=== PATIENT | male | born 1965 | race Caucasian/White ===

== ENCOUNTER 2023-12-02 00:50 | Day surgery (SDC) | payer OTHER, SELFPAY ==
[2023-11-14 10:54] VITALS: BMI 27.0
[2023-12-02 11:24] VITALS: BP 125/88; PULSE 72; RESP 19; TEMP 36.3; O2SAT 100
[2023-12-02] MEDS: LACTATED RINGERS 1,000 ML 150 ML IV CONT (11:37)
--- NOTE | 2023-12-02 11:42 | WPDANESEPPF ---
Anes - Initial Pre Proc Eval Procedure: Operation Date: 12/02/23 12:30 Proposed Procedures p Colonoscopy - Jamar Alcala MD Date/Time: 12/02/23 11:42 Surgeon: Jamar Alcala MD Pre Op Diagnosis: Family HX malignant neoplasm of digestive organs Patient Data Age: 58 Gender: M Height: 1.85 m Weight: 91.7 kg Last Vital Signs Temp 97.3 F L 12/02/23 11:24 Pulse 72 12/02/23 11:24 Resp 19 12/02/23 11:24 BP 125/88 12/02/23 11:24 Pulse Ox 100 12/02/23 11:24 O2 Del Method Room Air 12/02/23 11:24 Allergies Allergy/AdvReac Type Severity Reaction Status Date / Time No Known Allergies Allergy Unverified 12/02/23 11:23 Home Medications Medication Instructions Recorded Confirmed Type famotidine 20 mg tablet 20 mg PO BID PRN reflux 08/03/19 11/14/23 History nifedipine 30 mg tablet,extended 30 mg PO DAILY PRN cold exposure 06/04/22 11/14/23 Rx release #90 tabs triamcinolone acetonide 0.5 % 1 applic topical BID PRN rash 06/04/22 09/17/23 Rx topical cream #30 grams tretinoin 0.05 % topical cream 1 applic topical . daily #45 grams 10/10/22 09/17/23 Rx cetirizine 10 mg tablet (Zyrtec) 20 mg PO BID PRN allergy symptoms 03/06/23 11/14/23 History tamsulosin 0.4 mg capsule (Flomax) 0.4 mg PO QHS #90 caps 07/03/23 11/14/23 Rx montelukast 10 mg tablet 10 mg PO QHS #90 tabs 07/07/23 11/14/23 Rx (Singulair) fluticasone propionate 50 1 spray intranasal BID #48 grams 09/17/23 11/14/23 Rx mcg/actuation nasal spray,suspension (Flonase Allergy Relief) tamsulosin 0.4 mg capsule 0.4 mg PO DAILY 11/14/23 11/14/23 History Patient hx anesthesia problems: none Family hx anesthesia problems: none Results Review: All pre-operative results and documents have been reviewed as part of the pre-operative evaluation. [facility] Past Medical History Medical History (Updated 09/17/23 @ 14:57 by Lyle Parker MD) Atopic eczema BMI 27.0-27.9,adult BMI 29.0-29.9,adult BPH without obstruction/lower urinary tract symptoms Chronic anxiety Chronic cough Chest x-ray was normal on 07/24/2022. COVID-19 (~2022) COVID antibody test on 09/06/2022 was greater than 800. Probable recent COVID infection. 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 Iron 126 with 56% saturation and ferritin 298 with hemoglobin 13.5 on 08/18/2023. Excessive cerumen in left ear canal Family history of colon cancer Fatigue Hepatitis C was negative, HIV negative, hepatitis B immune. COVID antibody test was markedly positive at greater than 800 with likely recent infection 09/06/2022. History of Lyme disease Hypogonadism male total testosterone normal at 429.8 with free testosterone low at 4.1 on 08/18/2023. 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 Overweight (BMI 25.0-29.9) Protein in urine (08/18/23) trace proteinuria 08/18/2023. Radial nerve irritation right side treated surgically Restless legs syndrome Ferritin 298 on 08/18/2023. Urticaria Family History Family History Mother Patient's mother is , Onset Age: 85 Grandparent Family history of cardiovascular disease Cerebrovascular accident Family history of malignant neoplasm of stomach Sibling Family history of malignant neoplasm, Onset Age: 30 Father Family history of Alzheimer's disease, Onset Age: 82 Social History Social History Smoking status: Never smoker Alcohol intake: current Substance use: never Substance use type: does not use Lack of Transportation: No Lack of Food: Never True Current Housing: I Have Ho
--- NOTE | 2023-12-02 12:16 | PM.HPGS ---
History of Present Illness History of Present Illness Consent: Risks, benefits, and alternatives have been discussed and questions answered. Patient agrees to proceed with procedure. Chief complaint: Family HX malignant neoplasm of digestive organs Narrative: Bobby Romero is a 58 year old male here for screening colonoscopy, last one 5 years ago Review of Systems Review of Systems: All systems reviewed & are unremarkable except as noted in HPI and below PMFSH Past Medical History Medical History (Updated 09/17/23 @ 14:57 by Lyle Parker MD) Atopic eczema BMI 27.0-27.9,adult BMI 29.0-29.9,adult BPH without obstruction/lower urinary tract symptoms Chronic anxiety Chronic cough Chest x-ray was normal on 07/24/2022. COVID-19 (~2022) COVID antibody test on 09/06/2022 was greater than 800. Probable recent COVID infection. 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 Iron 126 with 56% saturation and ferritin 298 with hemoglobin 13.5 on 08/18/2023. Excessive cerumen in left ear canal Family history of colon cancer Fatigue Hepatitis C was negative, HIV negative, hepatitis B immune. COVID antibody test was markedly positive at greater than 800 with likely recent infection 09/06/2022. History of Lyme disease Hypogonadism male total testosterone normal at 429.8 with free testosterone low at 4.1 on 08/18/2023. 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 Overweight (BMI 25.0-29.9) Protein in urine (08/18/23) trace proteinuria 08/18/2023. Radial nerve irritation right side treated surgically Restless legs syndrome Ferritin 298 on 08/18/2023. Urticaria Family History Family History Mother Patient's mother is , Onset Age: 85 Grandparent Family history of cardiovascular disease Cerebrovascular accident Family history of malignant neoplasm of stomach Sibling Family history of malignant neoplasm, Onset Age: 30 Father Family history of Alzheimer's disease, Onset Age: 82 Social History Social History Smoking status: Never smoker Alcohol intake: current Substance use: never Substance use type: does not use Lack of Transportation: No Lack of Food: Never True Current Housing: I Have Housing Concerned About Future Housing: No Difficulty Paying Gas/Electric Bills: No Difficulty Paying for Meds: No Currently Unemployed: No Education: Master's Degree or Higher Difficulty w/ Childcare or Family Care: No Living arrangements: with family Spiritual care concerns: No Meds Home Medications and Allergies Home Medications Medication Instructions Recorded Confirmed Type famotidine 20 mg tablet 20 mg PO BID PRN reflux 08/03/19 11/14/23 History nifedipine 30 mg tablet,extended 30 mg PO DAILY PRN cold exposure 06/04/22 11/14/23 Rx release #90 tabs triamcinolone acetonide 0.5 % 1 applic topical BID PRN rash 06/04/22 09/17/23 Rx topical cream #30 grams tretinoin 0.05 % topical cream 1 applic topical . daily #45 grams 10/10/22 09/17/23 Rx cetirizine 10 mg tablet (Zyrtec) 20 mg PO BID PRN allergy symptoms 03/06/23 11/14/23 History tamsulosin 0.4 mg capsule (Flomax) 0.4 mg PO QHS #90 caps 07/03/23 11/14/23 Rx montelukast 10 mg tablet 10 mg PO QHS #90 tabs 07/07/23 11/14/23 Rx (Singulair) fluticasone propionate 50 1 spray intranasal BID #48 grams 09/17/23 11/14/23 Rx mcg/actuation nasal spray,suspension (Flonase Allergy Relief) tamsulosin 0.4 mg capsule 0.4 mg PO DAILY 11/14/23 11/14/23 History Allergies Allergy/AdvReac Type Severity Reaction Status Date / Time No [place]
[2023-12-02 12:40] VITALS: BP 89/54; PULSE 69; RESP 19; O2SAT 96
[2023-12-02 12:50] VITALS: BP 96/52; PULSE 66; RESP 24; O2SAT 97
[2023-12-02 13:00] VITALS: BP 95/55; PULSE 64; RESP 21; O2SAT 98
== END 2023-12-02 13:04 | disposition home or self-care (01) ==
PROVIDERS: PCP Family Medicine; Visit Provider Internal Medicine Gastroenterology
PROC: 0DJD8ZZ Inspection of Lower Intestinal Tract, Via Natural or Artificial Opening Endoscopic (ICD-10-PCS; CPT 45378; principal; 2023-12-02 12:30)
DX: Z12.11 Encounter for screening for malignant neoplasm of colon (principal); K64.8 Other hemorrhoids; Z80.0 Family history of malignant neoplasm of digestive organs; N40.0 Benign prostatic hyperplasia without lower urinary tract symptoms; F41.9 Anxiety disorder, unspecified
CPT/HCPCS: 45378; J2704; J7120